=== PATIENT | female | born 1955 | race Caucasian/White ===

== ENCOUNTER 2016-09-15 13:16 | Day surgery (SDC) | payer OTHER ==
[~2016-09-15] VITALS: Ht 157.5 cm; Wt 86.6 kg
[~2016-09-15 13:16] MED LIST: ASPI-973 PO; GABA-500 PO; HYDR-4003 PO; HYDR-656 PO; HYDR12.5 PO; LEVO125C2 PO; LISI-567 PO; MOME13HF4 IH; MULT-1018 PO; OMEP40CA36 PO; OXYC-407 PO; Sodium Chloride LOK Flush 10 mL Syringe IV PRN; fentaNYL-PF 50 mCg/mL 2 mL Inj IVPUSH PRN
[2016-09-15] MEDS ORDERED: SIMV20TA PO (13:48)
[2016-09-15] MEDS ORDERED: CYCL10TA9 PO (13:48)
[2016-09-15 13:55] VITALS: BP 115/71; PULSE 60; RESP 16; O2SAT 97
[2016-09-15] MEDS: 0.9% Sodium Chloride 1,000 ML IV PRN ×2 (14:51→15:17)
[2016-09-15 15:30] VITALS: BP 139/65; PULSE 69; RESP 16; O2SAT 96
[2016-09-15 15:40] VITALS: BP 97/60; PULSE 70; RESP 16; O2SAT 93
--- NOTE | 2016-09-15 16:05 | ENDO ---
[address] [address] ENDOSCOPY PROCEDURE PATIENT: IGNACIA WATTS : 1955 MR#: [id number] ADMIT: 09/15/2016 JOB ID: [id number] DATE OF SERVICE: 09/15/2016 PRIMARY PROVIDER: Milvia Gee DO. PROCEDURE: Esophagogastroduodenoscopy with hot snare polypectomy. INDICATIONS: A 61-year-old female with a history of reflux and gastric polyps, returning for surveillance. EQUIPMENT: [id number]. SEDATION: 1. Versed 5 mg. 2. Fentanyl 100 mcg. COMPLICATIONS: None identified. PROCEDURE INFORMATION: After the risks and benefits were explained, written and verbal informed consent was obtained. The patient was brought into the endoscopy suite and placed into the left lateral decubitus position. Sedation was achieved as above. The scope introduced into the mouth through the bite block, and advanced under direct visualization to the second portion of the duodenum. The scope was slowly withdrawn to carefully examine the mucosa for any defects or lesions. Retroflexed views were accomplished in the stomach. The stomach was decompressed. The scope removed from the patient who tolerated the procedure well. FINDINGS: 1. Duodenum: Fairly sharp angle from D1 into D2 but no strictures, no mass lesions, no ulcers. 2. Stomach: No ulcers. No outlet obstruction. No mass lesions throughout. Retroflexed views of the LES were rather unremarkable. There were several moderate-sized polyps seen in the mid body and proximal stomach. A couple of the larger ones were sampled for a more u.s. representative look at histology. Hot snare polypectomy was performed. These polyps were collected with a [place] and removed per os. 3. Esophagus: The squamocolumnar junction generally correlated with the top of the gastric folds. The GEJ was at 37 cm from the incisors. No acute erosive changes. Very subtle sliding hiatal hernia present. The remainder of the esophagus was unremarkable. ENDOSCOPIC DIAGNOSES: 1. Subtle sliding hiatal hernia. 2. Numerous moderate-sized gastric polyps (the two removed today were approximately 10-12 mm each). RECOMMENDATIONS: 1. Await histopathology. 2. Continue antireflux therapy. 3. If these are fundic gland polyps, then surveillance will not necessarily be required. If there are hyperplastic elements, then repeat EGD will likely be suggested in the next couple of years.
--- NOTE | 2016-09-17 13:46 | PATH ---
SURGICAL PATHOLOGY Attending Physician:Carine Burch CASE STATUS: Signed Out PATIENT NAME: IGNACIA WATTS PID: [id number] : 1955 DATE COLLECTED:09/15/2016 00:00 SPECIMEN: Stomach, Polyp, Biopsy CLINICAL HISTORY: GASTRIC POLYP FINAL DIAGNOSIS: 1.GASTRIC POLYP: BENIGN FUNDIC GLAND POLYP, NEGATIVE FOR ATYPIA. ICD10 CODE K31.7 GROSS DESCRIPTION: The specimen is received in one formalin filled container labeled with the patient's name, sublabeled "gastric polyps" and consists of 2 portions of tissue which aggregate to 1.5 x 1.0 x 1.1 CM. The first piece is trisected and entirely submitted in cassette A. The largest piece is trisected and entirely submitted in cassette B. 09/16/2016 DAC MICRO DESCRIPTION: See diagnosis. ICD-9 CODES: CPT CODES: 1: 12842 Electronically Signed Out Isaac Kim MD [facility] Pathology [facility] [address], [place] [address] Technical component performed at [facility], [facility] [address], [place], [address]
== END 2016-09-15 23:59 | disposition home or self-care (01) ==
LOC: END 13:16
PROVIDERS: ATTEND Internal Medicine Gastroenterology
DX: K31.7 Polyp of stomach and duodenum (principal); K44.9 Diaphragmatic hernia without obstruction or gangrene; K21.9 Gastro-esophageal reflux disease without esophagitis; Z79.82 Long term (current) use of aspirin
CPT/HCPCS: 43251; 88305; 99153; G0500; J2250; J3010; J7030